=== PATIENT | female | born 1970 | race Caucasian/White ===

== ENCOUNTER 2018-05-29 10:08 | Day surgery (SDC) | payer BC ==
[~2018-05-29] VITALS: Ht 165.1 cm; Wt 76.2 kg
[2018-05-29 10:55] VITALS: Ht 165.1 cm; Wt 76.2 kg
[2018-05-29] MEDS ORDERED: NO ACTIVE MEDS (10:59)
[2018-05-29 11:00] VITALS: BP 133/66; PULSE 95; RESP 18
[2018-05-29 11:08] VITALS: BP 133/66; PULSE 95; RESP 18
[2018-05-29] MEDS ORDERED: DIPHENHYDRAMINE 50 MG INJ ONE (11:20)
[2018-05-29] MEDS ORDERED: MIDAZOLAM 1 MG/ML 2 ML INJ ONE ×3 (11:51)
[2018-05-29] MEDS ORDERED: FENTAnyl 50 MCG/ML VIAL ONE (11:52)
[2018-05-29 12:01] VITALS: BP 101/56; PULSE 77; RESP 14
== END 2018-05-29 15:17 | disposition home or self-care (01) ==
LOC: GIL 10:08
PROVIDERS: ATTEND Internal Medicine Gastroenterology
DX: Z12.11 Encounter for screening for malignant neoplasm of colon (principal); K57.30 Diverticulosis of large intestine without perforation or abscess without bleeding
CPT/HCPCS: 45378; 84703; J1200; J2250; J3010